=== PATIENT | male | born 1985 | race Caucasian/White ===

== ENCOUNTER 2017-12-03 11:43 | Emergency (ER) | payer MEDICAID ==
[~2017-12-03] VITALS: Ht 170.2 cm; Wt 63.0 kg
[~2017-12-03 11:43] MED LIST: HYDR1TAB PO; TRAM50TA2 PO
[2017-12-03 11:57] VITALS: BP 135/81
[2017-12-03] MEDS ORDERED: ketorolac trometh inj. 60 MG/2 ML VIAL IM ONE (12:30)
[2017-12-03] MEDS ORDERED: ONDA4TAB12 PO (12:40)
[2017-12-03] MEDS ORDERED: OMEP40CA37 PO (12:40)
== END 2017-12-03 12:52 | disposition home or self-care (01) ==
LOC: ER 11:43
DX: R07.89 Other chest pain (principal); R11.2 Nausea with vomiting, unspecified; G89.29 Other chronic pain; Z87.891 Personal history of nicotine dependence; Z88.0 Allergy status to penicillin; Z79.899 Other long term (current) drug therapy
CPT/HCPCS: 93005; 96372; 99283; J1885

== ENCOUNTER 2018-06-19 08:26 | Outpatient (CLI) | payer MEDICAID ==
[~2018-06-19 08:26] MED LIST changes: +ONDA4TAB12 PO
== END 2018-06-19 23:59 | disposition home or self-care (01) ==
LOC: RAD 08:26
PROVIDERS: ATTEND Physician Assistant
DX: R40.20 Unspecified coma (principal); Z53.9 Procedure and treatment not carried out, unspecified reason

== ENCOUNTER 2018-06-22 10:18 | Outpatient (CLI) | payer MEDICAID | END 2018-06-22 23:59 | disposition home or self-care (01) | LOC: RAD 10:18 | PROVIDERS: ATTEND Physician Assistant | DX: R40.20 Unspecified coma (principal); F17.210 Nicotine dependence, cigarettes, uncomplicated; J45.909 Unspecified asthma, uncomplicated; Z88.0 Allergy status to penicillin; Z91.030 Bee allergy status | CPT/HCPCS: 95816 ==

== ENCOUNTER 2019-03-04 18:16 | Emergency (ER) | payer MEDICAID ==
[~2019-03-04] VITALS: Ht 172.7 cm; Wt 70.5 kg
[2019-03-04 19:20] VITALS: BP 128/73
[2019-03-04] MEDS ORDERED: CEPH500C5 PO (19:38)
[2019-03-04] MEDS ORDERED: SULF1TAB49 PO (19:38)
== END 2019-03-04 19:47 | disposition home or self-care (01) ==
LOC: ER 18:17
DX: L02.211 Cutaneous abscess of abdominal wall (principal); R10.31 Right lower quadrant pain; G89.29 Other chronic pain; Z88.0 Allergy status to penicillin; Z79.899 Other long term (current) drug therapy
CPT/HCPCS: 99284